=== PATIENT | female | born 1995 | race Caucasian/White ===

== ENCOUNTER 2021-06-24 16:39 | Emergency (ER) | payer OTHER, SELFPAY ==
[2021-06-24 19:36] VITALS: BP 139/88; PULSE 96; RESP 18; TEMP 36.9; O2SAT 98; BMI 32.8
--- NOTE | 2021-06-24 19:58 | ED.DENTAL ---
HPI - Dental/Oral General Chief complaint: Dental/Oral Stated complaint: jaw pain Time Seen by Provider: 06/24/21 20:16 Source: patient Mode of arrival: ambulatory Limitations: no limitations History of Present Illness HPI Narrative: 26-year-old female presents with toothache to the bilateral motors on her bottom jaw. States that she is having a difficult time eating. Has not had her wisdom teeth removed. MD Complaint: tooth pain Location: Tooth # (32, 17) Onset (ago): day(s) (7) Duration: constant Severity scale (1-10): 7 Relieving factors: nothing Exacerbating factors: chewing Context: other ( wisdom tooth impaction) Associated symptoms: gum swelling Treatment prior to arrival: oral analgesic Related Data Previous Rx's Medication Instructions Recorded amoxicillin 875 mg-potassium 1 tab PO Q12H 10 Days #20 tab 06/24/21 clavulanate 125 mg tablet (Augmentin) ibuprofen 600 mg tablet 600 mg PO Q6H PRN #60 tab 06/24/21 Allergies Allergy/AdvReac Type Severity Reaction Status Date / Time No Known Allergies Allergy Verified 06/24/21 19:36 [No Known Allergies*] Review of Systems Review of Systems: Constitutional: No Fever, No Chills ENT/Mouth: No swallowing difficulty, no change in voice, positive dental pain, positive jaw pain, no facial swelling Eyes: No Eye Pain, No Swelling Cardiovascular: No Chest Pain, No SOB Respiratory: No Cough, No Sputum, No Wheezing, No Smoke Exposure, No Dyspnea Gastrointestinal: No Nausea, No Vomiting, No Diarrhea Genitourinary: No Dysuria Musculoskeletal: No Myalgias Skin: No rash Neuro: No Weakness, No Numbness, No Headache Yes all other systems are reviewed and are negative PMFSH Past Medical History Attestation statement: The following information was validated with the patient. Source: old records reviewed Social History Social History Advance Directives: No Advance Directives Information Provided: No Patient : No Physical Exam Vital Signs: Vital Signs: Last Vital Signs Temp 98.5 F 06/24/21 19:36 Pulse 96 06/24/21 19:36 Resp 18 06/24/21 19:36 BP 139/88 06/24/21 19:36 Pulse Ox 98 06/24/21 19:36 Body Mass Index 32.8 Appearance: Alert. Oriented X3. No acute distress. Eyes: Pupils equal, round and reactive to light. ENT: Pharynx normal. gum swelling noted at 32 and 17. Neck: Normal inspection. Neck supple. CVS: Normal heart rate and rhythm. Pulses normal. Respiratory: No respiratory distress. Breath sounds normal. Abdomen: Soft and nontender. Skin: Skin warm and dry. Normal skin color. Normal skin turgor. Extremities: No lower extremity edema. Neuro: No motor deficit. No sensory deficit. Cranial nerves 2-12 intact. Course Course Course Narrative: 26-year-old female presents with dental pain. Has an appointment with a dentist but could not tolerate the pain anymore. Will treat with Toradol and Augmentin as she does have gingivitis-gum swelling at the 32 and 17. Patient does understand that she must follow-up with a dentist. will give a dental consult. Patient verbalized understanding of and agrees plan of care discharge home. MDM - Dental/Oral MDM Narrative Medical decision making narrative: wisdom tooth impaction Differential Diagnosis Differential diagnosis: Likely dental caries and toothache Medical Records Attestation: I reviewed the patient's medical records. Discharge Plan Discharge Clinical Impression: Toothache Patient Disposition: Home, Self-Care Instructions: Toothache (ED) Additional Instructions: please follow-up with a dentist. Take Augmentin as directed. Thank you for choosing this emergency department for evaluation. Please follow-up with primary care physician as needed. Return to the emergency department for any new, concerning, or worsening symptoms. Prescriptions: New amoxicillin-pot clavulanate [Augmentin] 875-125 mg tablet 1 tab PO Q12H 10 Days Qty: 20 RF: 0 ibuprofen 600 mg tablet 600 mg PO Q6H PRN (Reason: pain) Qty: 60 RF: 0 Stand Alone Forms: Dental Emergency Numbers Interventions: ED Discharge Assessment Last Done: 06/24/21 20:52 Discharge Date/Time: 06/24/21 20:53
[2021-06-24] MEDS: Ketorolac Tromethamine 60 MG/2 ML VIAL IM (20:42)
[2021-06-24] MEDS: Amoxicillin/Potassium Clav 875 MG TABLET PO (20:42)
== END 2021-06-24 20:53 | disposition home or self-care (01) ==
PROVIDERS: Emergency Provider Internal Medicine
DX: K08.89 Other specified disorders of teeth and supporting structures (principal); R68.84 Jaw pain
CPT/HCPCS: 96372; 99283; 99284; J1885